=== PATIENT | female | born 1995 | race Caucasian/White ===

== ENCOUNTER 2018-10-07 11:00 | Day surgery (SDC) | payer BC ==
[2018-10-05 12:06] VITALS: BMI 20.7
[2018-10-07] MEDS ORDERED: MIDAZOLAM HCL 2 MG/2 ML SINGLE DOSE VIAL ONE (12:09)
[2018-10-07] MEDS ORDERED: KETOROLAC TROMETHAMINE 30 MG/1 ML VIAL ONE (12:20)
[2018-10-07] MEDS ORDERED: ONDANSETRON 4 MG/2 ML VIAL ONE (12:20)
[2018-10-07] MEDS ORDERED: DEXAMETHASONE SOD PHOSPHATE 4 MG/1 ML VIAL ONE (12:20)
[2018-10-07] MEDS ORDERED: PROPOFOL 20 ML ONE (12:21)
[2018-10-07] MEDS ORDERED: BUPIVACAINE HCL 0.25% 125 MG/50 ML VIAL ONE (12:49)
[2018-10-07] MEDS ORDERED: oxyCODONE HCL 5 MG TABLET PO PRN ×3 (13:28→15:08)
[2018-10-07] MEDS ORDERED: ONDANSETRON 4 MG/2 ML VIAL IVPUSH PRN ×2 (13:28→15:08)
[2018-10-07] MEDS ORDERED: LACTATED RINGERS SOLUTION 1,000 ML IV SCH (13:30)
[2018-10-07 14:13] VITALS: TEMP 98.1
[2018-10-07 14:33] VITALS: BP 97/48; PULSE 54
[2018-10-07] MEDS ORDERED: PROMETHAZINE HCL 25 MG/1 ML VIAL IVPUSH PRN (15:08)
--- NOTE | 2018-10-08 09:50 | OP ---
DATE OF OPERATION: 10/07/2018 PREOPERATIVE DIAGNOSIS: Right hand mass. 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 OPERATIVE PROCEDURE: Right hand exploration with excision of nerve sheath intramural tumor. SURGEON: Paige Wilson MD CHART CHANGER: MERARY Wiggins ANESTHESIA: General. COMPLICATIONS: None. ESTIMATED BLOOD LOSS: Minimal. INDICATION FOR PROCEDURE: The patient is a 23-year-old female with the above finding indicated for operative treatment. Risks, benefits, alternatives were discussed with her and her parents at length and proper informed consent was obtained. She was specifically advised that this could be a nerve tumor and that resection of it could cause neurological dysfunction in this area and to the fingers. She accepted this and desired to proceed. PROCEDURE: After proper identification of patient, correct operative site, patient brought to the operating room and placed supine on the table. All prominences well padded. General anesthesia was provided by the anesthesiologist adequate for the procedure. Right upper extremity was prepped and draped in the usual sterile fashion. A well-padded tourniquet was placed over the sterile prep. Esmarch bandage to exsanguinate the right upper extremity. Tourniquet was inflated to 250 mmHg. A zigzag-type incision was made over the mass and extended proximal and distal to the mass to visualize the common digital nerve in the area. This was in the palm of the hand in line with the ring finger. The incision was taken sharply through the skin and blunt dissection was performed through the subcutaneous and the palmar fascia tissues. The mass was found to be within the common digital nerve and multiple fascicles were found surrounding it as the tumor was displacing these fascicles. 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 Procedure was performed under loupe magnification with microvascular instruments. The digital artery was carefully protected and freed from the nerve. The tumor was then carefully resected from the nerve while keeping the fascicles of the nerve intact. This was accomplished after meticulous dissection and the nerve remained intact as well as the artery. The mass was sent for pathologic evaluation. The wound was repaired with a 5-0 fast-absorbing plain gut and Dermabond. Sterile dressings were applied. Patient reversed from anesthesia and brought to recovery room in stable condition. She tolerated the procedure well. Maulik Boucher, the it assistant, was necessary for this procedure and this procedure could not have been performed without a skilled operative it assistant due to the highly technical nature of the surgery. Meticulous retraction was necessary and carefully protecting vital structures was also necessary during this procedure. PAIGE WILSON M.D. [id number]
--- NOTE | 2018-10-13 15:32 | PATH ---
Surgical Pathology Report Patient Name: MIMA BLANK [facility]. Rec. #: [id number] /Age/Gender: 1995 (Age: 23) / F Account: [id number] Location: [facility] AMBULATORY Taken: 10/07/2018 Received: 10/07/2018 Reported: 10/13/2018 Physicians: Thomas Subramanian M.D. Specimen(s) Received RIGHT HAND MASS, POSIBLE NERVE SHEATH TUMOR Clinical History Right hand mass Final Diagnosis HAND MASS, RIGHT, 'POSSIBLE NERVE SHEATH TUMOR', EXCISION: BENIGN NERVE SHEATH TUMOR, FAVOR NEUROFIBROMA. SEE COMMENT. Comment: Histologic sections show a haphazardly arranged spindle cell proliferation comprised of Schwann cells and fibroblasts in a myxoid background. Rare mast cells are noted. Immunohistochemical stains performed at [place], [place] ([id number]) and interpreted at [facility] show S100 is positive. DAVID was utilized to evaluate this case. Although a neurofibroma is favored, differential diagnosis includes a neuroma with myxoid changes and possibility of Schwannoma (Clovis B predominant). Suggest clinical correlation. Electronically Signed Elizabeth Granado M.D. Gross Description Received in formalin labeled "right hand mass, possible nerve sheath tumor," is a 1.0 x 0.3 x 0.2 cm landa portion of soft tissue. The specimen is submitted in toto in one cassette. /10/08/2018 saudi10/08/2018
== END 2018-10-07 14:35 | disposition home or self-care (01) ==
LOC: FASU 11:00
PROVIDERS: ATTEND Orthopaedic Surgery Hand Surgery
PROC: 01B40ZZ Excision of Ulnar Nerve, Open Approach (ICD-10-PCS; principal; 2018-10-07 12:27)
DX: D36.10 Benign neoplasm of peripheral nerves and autonomic nervous system, unspecified (principal)
CPT/HCPCS: 84703; 88305-TC; 94760